=== PATIENT | female | born 1990 | race Caucasian/White ===

== ENCOUNTER → 2019-11-06 | Outpatient (CLI) | payer OTHER ==
--- NOTE | 2019-11-06 11:35 | MRI ---
Study: MRI of the Left Shoulder. Indication: ROTATOR CUFF TEAR Technique: Multiplanar, multi sequence MRI of the left shoulder was obtained without intravenous contrast. Comparison: None. Findings: Mild AC joint osteoarthritis. Type II acromion mild lateral downsloping. Supraspinatus and infraspinatus tendinosis with scattered interstitial fissuring throughout the insertional and critical zone fibers of both tendons. No full-thickness tear. Subscapularis and teres minor tendons intact. Rotator cuff musculature normal without atrophy, fatty infiltration, or intramuscular edema. Long head biceps tendon intact. Free edge truncation of the posterior labrum. No fluid-filled labral tear. Anterior superior sublabral foramen. No acute fracture or advanced glenohumeral articular cartilage loss. Impression: Supraspinatus and infraspinatus tendinosis with scattered interstitial fissuring throughout both tendons. Free edge truncation throughout the posterior labrum. Mild AC joint osteoarthritis. Electronically signed by: Cosme Rendon MD 11/06/2019 11:33 AM CDT
== END ==
LOC: MRI 08:49
PROVIDERS: ATTEND Family Medicine
DX: M19.012 Primary osteoarthritis, left shoulder (principal); S43.432A Superior glenoid labrum lesion of left shoulder, initial encounter; M75.92 Shoulder lesion, unspecified, left shoulder

== ENCOUNTER → 2020-03-05 | Outpatient (CLI) | payer OTHER | LOC: GMAJ 14:23 | PROVIDERS: ATTEND Family Medicine | DX: R53.83 Other fatigue (principal) ==